=== PATIENT | female | born 1950 ===

== ENCOUNTER 2018-06-01 11:04 | Day surgery (SDC) | payer MEDICARE, MEDICAID ==
[2018-06-01] MEDS: Lactated Ringer's 500 ML IV ONE (13:23)
[2018-06-01] MEDS ORDERED: Propofol 10 mg/ml Inj (20 ML) ONE (14:37)
[2018-06-01 14:56] VITALS: TEMP 97.5
[2018-06-01] MEDS ORDERED: Lactated Ringer's 500 ML IV SCH (16:00)
[2018-06-01 16:55] VITALS: O2SAT 99
[2018-06-01 16:57] VITALS: BP 120/70; PULSE 88; RESP 18
== END 2018-06-01 16:55 | disposition home or self-care (01) ==
LOC: H.ENDO 11:04
PROVIDERS: ATTEND Internal Medicine Gastroenterology
DX: Z12.11 Encounter for screening for malignant neoplasm of colon (principal); K64.0 First degree hemorrhoids
CPT/HCPCS: G0121; J2001; J2704; J7120